=== PATIENT | female | born 1990 | race Caucasian/White ===

== ENCOUNTER 2017-07-03 18:59 | Emergency (ER) | payer OTHER, BC ==
[~2017-07-03 18:59] MED LIST: AMOX500T PO; IBUP400T20 PO; PERC5TAB12 PO
[2017-07-03 19:10] VITALS: BP 108/66; PULSE 92; RESP 18; TEMP 98.5; O2SAT 98
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
[2017-07-03] MEDS ORDERED: KETOROLAC TROMETHAMINE 60 MG/2 ML (IM) VIAL IM ONE (20:00)
[2017-07-03] MEDS ORDERED: DIAZEPAM 5 MG TAB PO ONE (20:00)
[2017-07-03] MEDS ORDERED: IBUP1TAB7 PO (20:50)
[2017-07-03] MEDS ORDERED: DIAZ5 PO (20:50)
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
== END 2017-07-03 20:56 | disposition home or self-care (01) ==
LOC: PHEFT 18:59
DX: S16.1XXA Strain of muscle, fascia and tendon at neck level, initial encounter (principal); V43.52XA Car driver injured in collision with other type car in traffic accident, initial encounter; Y92.414 Local residential or business street as the place of occurrence of the external cause; Z72.0 Tobacco use
CPT/HCPCS: 72050; 96372; 99284; J1885